=== PATIENT | female | born 1995 | race Two or more races ===

== ENCOUNTER 2017-03-22 03:03 | Inpatient (IN) | payer MEDICAID ==
[2017-03-22] MEDS ORDERED: RINGERS SOLUTION,LACTATED 1,000 ML IV PRN ×3 (03:19→10:29)
[2017-03-22] MEDS ORDERED: RINGERS SOLUTION,LACTATED 1,000 ML IV ONE (03:19)
[2017-03-22 03:44] LABS: ABSOLUTE EOSINOPHILS # (AUTO) 0.1 10^3/uL (0.0-0.6); ABSOLUTE LYMPHOCYTES (AUTO) 2.2 10^3/uL (0.5-4.7); ABSOLUTE MONOCYTES (AUTO) 0.6 10^3/uL (0.1-1.4); BASOPHILS % (AUTO) 0.2 % (0-2); EOSINOPHILS % (AUTO) 1.1 % (0-6); HEMATOCRIT 37.5 % (36.0-47.0); HEMOGLOBIN 12.6 g/dL (12.0-15.5); LYMPHOCYTES % (AUTO) 31.4 % (13-45); MEAN CORPUSCULAR HGB CONC 33.6 g/dL (32.0-36.0); MEAN CORPUSCULAR VOLUME 92 fl (80-97); PLATELET COUNT 176 10^3/uL (150-450); RED BLOOD COUNT 4.07 10^6/uL (3.72-5.28); RED CELL DISTRIBUTION WIDTH 13.9 % (11.5-14.0); SEGMENTED NEUTROPHILS % (AUTO) 58.3 % (42-78); TOTAL CELLS COUNTED % (AUTO) 100 %; WHITE BLOOD COUNT 6.8 10^3/uL (4.0-10.5)
[2017-03-22 04:01] LABS: APPEARANCE,URINE CLOUDY; BILIRUBIN,URINE NEGATIVE (NEGATIVE); COLOR,URINE YELLOW; GLUCOSE, URINE NEGATIVE (NEGATIVE); KETONES,URINE TRACE mg/dL (NEGATIVE); LEUKOCYTE ESTERASE,URINE NEGATIVE (NEGATIVE); NITRITE,URINE NEGATIVE (NEGATIVE); PROTEIN,URINE 100 mg/dL (NEGATIVE); URINE SPECIFIC GRAVITY 1.012; UROBILINOGEN,URINE NEGATIVE mg/dL (<2.0)
[2017-03-22] MEDS ORDERED: MEASLES,MUMPS&RUBELLA VACC/PF 0.5 ML VIAL SUBCUT PRN ×2 (04:27→10:29)
[2017-03-22] MEDS ORDERED: DIPH/PERTUSS(ACELL)/TETANUS VAC/PF 0.5 ML SYR (>=10YO) IM PRN ×2 (04:27→10:29)
[2017-03-22] MEDS ORDERED: SIMETHICONE 80 MG TAB.CHEW PO PRN ×2 (04:27→10:29)
[2017-03-22] MEDS ORDERED: PROMETHAZINE HCL INJ 25 MG/1 ML VIAL IV PRN ×2 (04:27→10:29)
[2017-03-22] MEDS ORDERED: OXYCODONE-ACETAMINOPHEN 5-325 MG TABLET PO PRN ×3 (04:27→10:29)
[2017-03-22] MEDS ORDERED: HYDROMORPHONE HCL INJ/PF 2 MG/ML AMPULE IV PRN (04:27)
[2017-03-22] MEDS ORDERED: ACETAMINOPHEN 100 ML IV PRN ×2 (04:27→10:29)
[2017-03-22] MEDS ORDERED: OXYTOCIN/NORMAL SALINE 20 UNIT/1,000 ML RTUINJ IV PRN (04:27)
[2017-03-22] MEDS ORDERED: ACETAMINOPHEN 325 MG TABLET PO PRN ×2 (04:27→10:29)
[2017-03-22 04:32] LABS: URINE AMPHETAMINES SCREEN NEGATIVE; URINE BARBITURATES SCREEN NEGATIVE; URINE BENZODIAZEPINES SCREEN NEGATIVE; URINE COCAINE SCREEN NEGATIVE; URINE MARIJUANA (THC) SCREEN NEGATIVE; URINE METHADONE SCREEN NEGATIVE; URINE PHENCYCLIDINE SCREEN NEGATIVE
[2017-03-22] MEDS ORDERED: CEFAZOLIN 2 GM/D5W RTU 2 GM/50 ML RTUPB IV ONE ×2 (05:03→09:12)
[2017-03-22] MEDS ORDERED: CITRIC ACID/SODIUM CITRATE ORAL SOLN 15 ML UDCUP ONE (05:04)
[2017-03-22] MEDS ORDERED: NORMAL SALINE 250 ML IV PRN (07:31)
[2017-03-22] MEDS ORDERED: OXYTOCIN 10 UNIT/ML VIAL ONE (09:14)
[2017-03-22] MEDS ORDERED: PROPOFOL INJ 200 MG/20 ML VIAL IV ONE (09:14)
[2017-03-22] MEDS ORDERED: EPHEDRINE SULFATE INJ 50 MG/1 ML AMPULE ONE (09:15)
[2017-03-22] MEDS ORDERED: MIDAZOLAM 2 MG/2 ML INJ ONE (09:15)
[2017-03-22] MEDS ORDERED: FENTANYL CITRATE INJ/PF 100 MCG/2 ML AMPUL ONE (09:15)
[2017-03-22] MEDS ORDERED: DOCUSATE SODIUM 100 MG CAPSULE PO SCH (10:00)
--- NOTE | 2017-03-22 10:01 | Warning Signs in Babies ---
VOD Warning Signs Datetime Report Generated by [facility]: 03/22/2017 10:01 VOD#608 -Warning Signs in Babies: Needs to be viewed. (03/22/2017 03:06:Dipika Martinez RN)
[2017-03-22] MEDS ORDERED: MORPHINE SULFATE 10 MG/ML INJ IV PRN (10:29)
[2017-03-22] MEDS ORDERED: OXYTOCIN/NORMAL SALINE 1,000 ML IV PRN (10:29)
[2017-03-22] MEDS ORDERED: MORPHINE SULFATE 10 MG/ML INJ ONE (10:33)
[2017-03-22] MEDS ORDERED: OXYTOCIN/NORMAL SALINE 20 UNIT/1,000 ML RTUINJ ONE (10:48)
--- NOTE | 2017-03-22 11:03 | Warning Signs in Babies ---
VOD Warning Signs Datetime Report Generated by [facility]: 03/22/2017 11:03 VOD#608 -Warning Signs in Babies: Needs to be viewed. (03/22/2017 10:30:Dipika Martinez RN)
--- NOTE | 2017-03-22 11:13 | OPERATIVE REPORT E ---
Operative Report NAME: KRISS MANCILLA : 1995 AGE: 21Y DATE OF SURGERY: 03/22/2017 ROOM: LR200 PREOPERATIVE DIAGNOSES: 1. IUP AT 38 WEEKS AND 2 DAYS. 2. PREMATURE RUPTURE OF MEMBRANES. 3. PREVIOUS , DESIRES REPEAT. POSTOPERATIVE DIAGNOSES: 1. IUP AT 38 WEEKS AND 2 DAYS. 2. PREMATURE RUPTURE OF MEMBRANES. 3. PREVIOUS , DESIRES REPEAT. OPERATION: Low transverse hysterotomy section. SURGEON: CONCHIS YU M.D. ANESTHESIA: Dr. Morales with a spinal. FINDINGS: A male infant in cephalic presentation with Apgars of 9 and 9. COMPLICATIONS: None. ESTIMATED BLOOD LOSS: 400 mL. SPECIMENS REMOVED: None. PROCEDURE: Patient was taken to the operating room, prepared and draped in normal sterile fashion in the supine position with a leftward tilt. Transverse skin incision was made with the scalpel and carried through the underlying layer of fascia with the same scalpel. The fascia was excised in the midline and extended laterally with surgeon's finger fracture. The rectus muscle was divided and the peritoneal cavity was entered bluntly, with good visualization of the bladder. The bladder blade was inserted and the hysterotomy was nicked in the center, and the hysterotomy was extended with surgeon's finger fracture. The was then delivered atraumatically. Then nose and mouth were suctioned with a suction bulb. The cord was clamped and cut and the was handed off to waiting research professional. Cord blood was collected. Placenta was removed manually. The uterus was exteriorized and cleared of clots and debris, and the hysterotomy was closed with 0 Monocryl in a running locked fashion. A second layer of the same suture was used to imbricate to ensure hemostasis. The uterus was returned to the abdomen. The peritoneal cavity was cleared of clots and debris. The rectus muscle and peritoneum were reapproximated with a mattress suture of 2-0 chromic. The fascia was closed with 0 Vicryl. The subcutaneous layer was closed with plain catgut and the skin was closed with 4-0 Vicryl. Patient tolerated procedure well. Sponge, lap and needle counts were correct x2. Patient was taken to recovery in stable condition. DICTATING PHYSICIAN: CONCHIS YU M.D. [id number] PHY#: [id number] ID: [id number] JOB#: [id number] ACCT: [id number] cc:CONCHIS YU M.D. >
[2017-03-22] MEDS ORDERED: IBUPROFEN 800 MG TABLET PO SCH (12:00)
--- NOTE | 2017-03-22 12:19 | Admission Physical ---
Datetime Report Generated by CPN: 03/22/2017 12:19 CURRENT ADMISSION Chief Complaint: Suspected Ruptured Membranes Indication for Induction: Not Applicable Indication for Induction: Term, Intrauterine ; No Active Labor; Ruptured Membranes Admit Plan: Admit to Unit; Initiate Section Protocol ALLERGIES Medication Allergies: No Medication Allergies: No Known Allergies (03/22/2017) Medication Allergies: No Known Allergies (01/27/2014) Latex: No Latex Allergies OBSTETRICAL HISTORY EDC: 04/07/2017 00:00 : 2 Para: 1 Term: 0 : 1 SAB: 0 IAB: 0 Ectopic: 0 Livin Cesareans: 1 VBACs: 0 Multiple Births: 0 Gestational Diabetes: No Rh Sensitization: No Incompetent Cervix: No GABRIEL: No Infertility: No ART Treatment: No Uterine Anomaly: No IUGR: No Hx Previous C/S: Yes Macrosomia: No Hx Loss/Stillborn: No PIH: No Hx : No Placenta Previa/Abruption: No Depression/PP Depression: No PTL/PROM: Yes Post Hemorrhage: No Current Procedures: Ultrasound Obstetrical History Comments: G1 - C/S Boy 03/2016 G2 - current SEE RECORDS Alcohol: No Marijuana : No Cocaine: No Other Illicit Drugs: No Cigarettes: Never Smoker. 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 Surgery: No Heart Disease: No Hosp/Surgery: Yes Autoimmune Disorder: No Anesthetic Complications: No Kidney Disease: No Abnormal Pap Smear: No Neuro/Epilepsy: No Psychiatric Disorders: No Other Medical Diseases: No Hepatitis/Liver Disease: No Significant Family History: No Varicosities/Phlebitis: No Trauma/Violence : No Thyroid Dysfunction: No Medical History Comments: spinal surgery, c/s INFECTIOUS HISTORY Gonorrhea: No Genital Herpes: No Chlamydia: No Tuberculosis: No Syphilis: No Hepatitis: No HIV/AIDS Exposure: No Rash or Viral Illness: No HPV: No PHYSICAL EXAM General: Normal HEENT: Normal Neurologic: Normal Thyroid: Normal Heart: Normal Lungs: Normal Breast: Deferred Back: Normal Abdomen: Normal Genitourinary Exam: Normal Extremities: Normal DTRs: Normal Pelvic Type: Adequate Vital Signs: Reviewed FETUS A EGA: 37.5 Decelerations: None FHR Category: Category I Presentation: Vertex Admit Comment: efw 7 lbs, prep for c section PLANS FOR LABOR AND DELIVERY Labor and Delivery: None Pain Management: Spinal Feeding Preference: Formula Benefit of Breast Feed Discussed: Yes INFORMED CONSENT Signature: with User ID: [email or web address]
[2017-03-22] MEDS: KETOROLAC TROMETHAMINE INJ/PF 30 MG/1 ML SDV IV SCH ×3 (12:36→21:20)
[2017-03-22] MEDS: PRENATAL VITAMIN W DHA CAPSULE PO SCH (12:36)
--- NOTE | 2017-03-22 12:36 | Delivery Summary ---
Del Sum A-C Datetime Report Generated by CPN: 03/22/2017 12:35 DELIVERY PERSONNEL DELIVERY PERSONNEL: [id number] Delivery Doctor:: Louise Warren MD Anesthesiologist:: Sanjana Morales MD TAX ADJUSTER:: Sharron Grant CRNA Labor and Delivery Nurse:: Dipika Martinez RNwire inspector Nurse:: IESHA Man Pre Assembly Wirer:: Dipika Martinez RN Neonatal Nurse Practitioner:: CHARAN Barone Nursery Nurse:: Sara Monroy RN Supply Chain Consultant/GIMP TACKER: Trinidad Alan, ST Supply Chain Consultant/GIMP TACKER: Farhad Jennings, MEAT BLENDER MATERNAL INFORMATION Delivery Anesthesia: Spinal Medications After Delivery: Pitocin Bolus-Please Comment Meds After Delivery Comment: Pitocin bolusing per order Estimated Blood Loss (ml): 400 Maternal Complications: Other Other Maternal Complications: Prior C/s SROM LABOR SUMMARY EDC: 04/07/2017 00:00 No. Babies in Womb: 1 Attempted: No Labor Anesthesia: None LABOR INFORMATION Reason for Induction: Not Applicable Oxytocin: N/A Group B Beta Strep: negative Antibiotics # of Doses: 2 Antibiotics Time of Last Dose: 09 Name of Antibiotic Given: Ancef 2 grams Steroids Given: None Reason Steroids Not Administered: Not Applicable MEMBRANES Membranes Rupture Method: Spontaneous Rupture of Membranes: 03/22/2017 02:00 Length of Rupture (hr): 7.85 Amniotic Fluid Color: Clear Amniotic Fluid Amount: Large Amniotic Fluid Odor: None STAGES OF LABOR Stage 3 hr: 0 Stage 3 min: 1 VAGINAL DELIVERY Episiotomy: None Laceration #1: None Laceration Extension #1: N/A Laceration Repair: Not Applicable Sponge Count Correct: N/A Sharps Count Correct: N/A CSECTION DELIVERY Primary Indication: Repeat Elective Other Primary Indication: SROM Secondary Indication: N/A CSection Urgency: Non-Scheduled CSection Incidence: Repeat Labor: No Labor Elective: N/A CSection Incision: Lower Uterine Transverse BABY A INFORMATION Delivery Date/Time: 03/22/2017 09:51 Method of Delivery: Born in Route : No : N/A Forceps: N/A Vacuum Extraction: N/A Shoulder Dystocia : No PRESENTATION/POSITION BABY A Presentation: Cephalic Cephalic Presentation: Vertex Vertex Position: Left Occipital Anterior Breech Presentation: N/A PLACENTA INFORMATION BABY A Placenta Delivery Time : 03/22/2017 09:52 Placenta Method of Delivery: Manual Removal Placenta Status: Delivered SCORES BABY A Heart Rate 1 min: >100 bpm Resp Effort 1 min: Good Cry Reflex Irritability 1 min: Cough or Sneeze or Pulls Away Muscle Tone 1 min: Active Motion Color 1 min: Body [place], Extremities Blue Resuscitation Effort 1 min: Tactile Stimulation SCORE 1 MIN: 9 Heart Rate 5 min: >100 bpm Resp Effort 5 min: Good Cry Reflex Irritability 5 min: Cough or Sneeze or Pulls Away Muscle Tone 5 min: Active Motion Color 5 min: Body [place], Extremities Blue Resuscitation Effort 5 min: Tactile Stimulation SCORE 5 MIN: 9 INFORMATION BABY A Gestational Age at Delivery: 37.5 Gestational Status: Early Term- 37- 38.6 Weeks Outcome : Liveborn Infant Condition : Stable Sex: Male IDENTIFICATION BABY A Infant Verification Date/Time: 03/22/2017 09:49 ID Band Number: [id number] Mother's Name Verified: Yes RN Verifying Infant: Kalyn Sharma, RNC Additional Verifying Personnel: CAnnita Martinez, RN WEIGHT/LENGTH BABY A Infant Birthweight (gm): 3580 Infant Weight (lb): 7 Weight (oz): 14 Infant Length (in): 20.50 Length (cm): 52.07 CORD INFORMATION BABY A No. Cord Vessels: 3 Nuchal Cord : N/A Nuchal Cord- Other: Body cord Cord Blood Taken: Yes-For Eval (Mom's Blood Type - or O+) Suction: Mouth; Nose ASSESSMENT BABY A Complications: None Physical Findings at Delivery: Within Normal Limits Respirations: Appears Normal Skin to Skin: No Nitrate Operator/ALS Called : Yes Care By: Kate Monroy, RN BABY B INFORMATION : N/A
[2017-03-22] MEDS ORDERED: KETOROLAC TROMETHAMINE INJ/PF 30 MG/1 ML SDV IV SCH (14:00)
[2017-03-22] MEDS: DOCUSATE SODIUM 100 MG CAPSULE PO SCH (18:05)
[2017-03-23] MEDS: OXYCODONE-ACETAMINOPHEN 5-325 MG TABLET PO PRN ×2 (02:26→22:24)
[2017-03-23 06:41] LABS: HEMATOCRIT 35.8 % (36.0-47.0); MEAN CORPUSCULAR HEMOGLOBIN 31.2 pg (27.0-33.4); MEAN CORPUSCULAR HGB CONC 33.4 g/dL (32.0-36.0); MEAN CORPUSCULAR VOLUME 93 fl (80-97); PLATELET COUNT 147 10^3/uL (150-450); RED BLOOD COUNT 3.84 10^6/uL (3.72-5.28); RED CELL DISTRIBUTION WIDTH 14.1 % (11.5-14.0); WHITE BLOOD COUNT 8.1 10^3/uL (4.0-10.5)
[2017-03-23] MEDS: IBUPROFEN 800 MG TABLET PO SCH ×3 (06:59→22:16)
--- NOTE | 2017-03-23 09:36 | PDOC PROGRESS REPORT ---
Subjective-OB Subjective: Post Delivery Day: 21 year old. Denies any needs at this time ppd1 bottlefeeding tympanic abdomen reports burping, no flatus, no bm encouraged increased ambulation learning verbalized plan on d/c in AM Physical Exam (OB) Vital Signs: Temp Pulse Resp BP Pulse Ox 97.8 F 65 16 117/67 100 03/23/17 07:24 03/23/17 07:24 03/23/17 07:24 03/23/17 07:24 03/23/17 07:24 Intake & Output 03/22/17 03/23/17 03/24/17 06:59 06:59 06:59 Intake Total 1450 Output Total 975 Balance 475 Weight 73.799 kg - Dressing Removed: No - opsite Incision: Dressing - Lochia Lochia Amount: Small 10-25 ml Lochia Color: Rubra/Red - Abdomen Description: Soft, Round Hernia Present: No Fundal Description: Firm, Midline Fundal Height: u/u - u/2 Objective-Diagnostic Laboratory: 03/23/17 06:11 03/23/17 06:11 WBC 8.1 RBC 3.84 Hgb 12.0 Hct 35.8 L MCV 93 MCH 31.2 MCHC 33.4 RDW 14.1 H Plt Count 147 L
[2017-03-23] MEDS: DOCUSATE SODIUM 100 MG CAPSULE PO SCH ×2 (09:47→22:17)
[2017-03-23] MEDS: PRENATAL VITAMIN W DHA CAPSULE PO SCH (09:47)
[2017-03-23] MEDS ORDERED: PRENATAL VITAMIN W DHA CAPSULE PO SCH (10:00)
[2017-03-23] MEDS ORDERED: FAMOTIDINE 20 MG TABLET PO ONE (20:30)
[2017-03-24] MEDS: IBUPROFEN 800 MG TABLET PO SCH ×3 (03:08→13:28)
[2017-03-24 08:39] VITALS: BP 109/67
[2017-03-24] MEDS: PRENATAL VITAMIN W DHA CAPSULE PO SCH (09:39)
[2017-03-24] MEDS: DOCUSATE SODIUM 100 MG CAPSULE PO SCH (09:40)
[2017-03-24] MEDS ORDERED: FAMOTIDINE 20 MG TABLET PO SCH (10:00)
--- NOTE | 2017-03-24 10:42 | PDOC DISCHARGE SUMMARY ---
Final Diagnosis Discharge Date: 03/24/17 - Final Diagnosis (1) S/P repeat low transverse Is this a current diagnosis for this admission?: Yes Discharge Data - Discharge Medication Prescriptions: Oxycodone HCl/Acetaminophen [Percocet 5-325 mg Tablet] 1 tab PO Q4HP PRN #30 tablet PRN Reason: Ibuprofen [Motrin 800 mg Tablet] 800 mg PO Q8 #90 tablet Home Medications: Vit/Iron Fum/Folic AC [ Tablet] 1 each PO DAILY 03/22/17 Ibuprofen [Motrin 800 mg Tablet] 800 mg PO Q8 #90 tablet 03/24/17 Oxycodone HCl/Acetaminophen [Percocet 5-325 mg Tablet] 1 tab PO Q4HP PRN #30 tablet 03/24/17 Reason(s) for Admission: Ceasarean Section-Repeat Intrapartum Procedure(s): : Low Cervical, Transverse - Diagnosis Test Laboratory: Temp Pulse Resp BP Pulse Ox 97.9 F 68 17 109/67 100 03/24/17 09:26 03/24/17 09:26 03/24/17 09:26 03/24/17 08:05 03/24/17 09:26 03/22/17 03/22/17 03/23/17 03:24 03:29 06:11 RBC 4.07 3.84 Hgb 12.6 12.0 Hct 37.5 35.8 L Urine Opiates Screen NEGATIVE - Discharge information/Instructions Discharge Activity: Activity As Tolerated, Balance Activity w/Rest, No Driving, No Lifting Over 10 Pounds, No Lifting/Push/Pulling, Pelvic Rest, No tub bath Discharge Diet: Regular Disposition: HOME, SELF-CARE Follow up with: [facility] in: 1
== END 2017-03-24 15:50 | disposition home or self-care (01) | DRG 766 ==
LOC: LC 03:03 → LR 03:18 → EEVIPCON 03:18 → LR 09:36 → 2S 12:05
PROVIDERS: ADMIT Obstetrics & Gynecology; ATTEND Obstetrics & Gynecology
PROC: 10D00Z1 Extraction of Products of Conception, Low, Open Approach (ICD-10-PCS; principal; 2017-03-22)
PROC: 4A1HXCZ Monitoring of Products of Conception, Cardiac Rate, External Approach (ICD-10-PCS; 2017-03-22)
DX: O34.211 Maternal care for low transverse scar from previous cesarean delivery (principal); O69.89X0 Labor and delivery complicated by other cord complications, not applicable or unspecified; Z3A.37 37 weeks gestation of pregnancy; Z37.0 Single live birth
CPT/HCPCS: 1961; 36415; 80307; 81005; 85025; 85027; 86592; 86850; 86870; 86900; 86901; 86902; 86920; 86922; 94799; J0690; J1170; J1885; J2250; J2270; J2590; J2704; J3010; J3490; J7120